=== PATIENT | female | born 1990 | race Caucasian/White ===

== ENCOUNTER 2022-03-23 20:02 | Emergency (ER) | payer SELFPAY ==
[2022-03-23 21:34] LABS: HEMOGLOBIN 8.5 gm/dl (12.3-15.3); RED BLOOD COUNT 3.53 M/UL (4.00-5.10); WHITE BLOOD COUNT 6.2 K/UL (4.5-11.0)
[2022-03-23] MEDS ORDERED: MACROBID 100 M100 MG PO (21:41)
== END 2022-03-23 22:30 | disposition home or self-care (01) ==
LOC: ER1 20:02
PROVIDERS: Emergency Medicine
DX: N92.0 Excessive and frequent menstruation with regular cycle (principal); N94.6 Dysmenorrhea, unspecified; D64.9 Anemia, unspecified
CPT/HCPCS: 84703; 85025; 99283